=== PATIENT | female | born 1980 | race Caucasian/White ===

== ENCOUNTER 2016-11-01 08:59 | Day surgery (SDC) | payer BC ==
--- NOTE | 2016-10-30 14:31 | HP ---
HISTORY OF PRESENT ILLNESS: The patient is a 36-year-old, has had a cyst on her neck for years, before Thanksgiving it became infected. She is allergic to sulfa, had a anaphylactic response in the past. She had some allergy issues, she was transferred to [facility]. Been on Keflex recently. PAST MEDICAL HISTORY: Rheumatoid arthritis. MEDICATIONS: She has been on Keflex. PAST SURGICAL HISTORY: She had tonsillectomy, appendectomy, , and cholecystectomy in the past. Past surgical history also includes right lung decortication in the past. FAMILIY HISTORY: Cancer, hypertension. ALLERGIES: SULFA. She had anaphylactic response. SOCIAL HISTORY: No smoking or alcohol abuse. REVIEW OF SYSTEMS: Ten systems reviewed, per pre-admission assessment pertinent as noted above, pain on palpation. Other systems negative or noncontributory as noted above, appropriate pre-admission questionnaire. PHYSICAL EXAMINATION: GENERAL: No acute distress. HEENT: Sclerae nonicteric. NECK: No JVD. Left side of her neck there is a ruptured cyst. CHEST: Equal excursions. No laboring. CARDIOVASCULAR: Regular rate and rhythm. ABDOMEN: Soft. EXTREMITIES: No significant edema. NEUROLOGICAL: Alert, moving extremities grossly symmetrically, no gross motor deficits noted. IMPRESSION: History of ruptured cyst, neck, and need of incision. Told she was a candidate. She was explained the procedure in detail not limited to bleeding, infection, risk of complications or dehiscence, possibility there is infection, may need to leave in packing, we can gradually pull out over time and repack the wound. General risk of anesthesia, DVT, PE, pneumonia, perioperative risk of aches, pains, burning or numbness; the fact that she would have a scar in the area. She understands. We will excise. Likely it will not recur but she could get some cyst adjacent to or elsewhere on her body. She understands, agrees to plan or procedure. We will proceed with excisional biopsy, reference this site, right side of the neck, as an outpatient.
[~2016-11-01 08:59] MED LIST: DIPRIVAN 200 MG/20 ML IV ONE; Decadron 4 MG INJ IV ONE; Lactated Ringers 1,000 ML IV ONE; SUBLIMAZE 250 MCG/5 ML IJ ONE; Sensorcaine 0.25% 10 ML ONE; Versed 2 MG/2 ML Injection IV ONE; Zofran 4 MG/2 ML VIAL IV ONE
[2016-11-01] MEDS ORDERED: Pepcid 20 MG VIAL IV ONE ×2 (09:15→09:24)
[2016-11-01] MEDS ORDERED: BICITRA 30 ML CUP PO ONE (09:16)
[2016-11-01] MEDS ORDERED: Lactated Ringers 1,000 ML IV ONE (09:24)
[2016-11-01] MEDS ORDERED: BICITRA 30 ML CUP ONE (09:24)
[2016-11-01] MEDS ORDERED: Lactated Ringers 1,000 ML IV SCH (09:30)
[2016-11-01] MEDS ORDERED: KEFZOL 1 GM ONE (10:06)
[2016-11-01] MEDS ORDERED: SUBLIMAZE 100 MCG/2 ML ONE (11:09)
[2016-11-01 12:18] VITALS: PULSE 81; O2SAT 96
[2016-11-01 12:57] VITALS: BP 139/83
--- NOTE | 2016-11-01 12:57 | OP ---
SURGERY DATE/TIME: 11/01/2016 1015 PREOPERATIVE DIAGNOSIS: History of persistent ruptured neck cyst site. POSTOPERATIVE DIAGNOSIS: History of persistent ruptured neck cyst site. PROCEDURE: Excision and biopsy of ruptured neck cyst site right neck (approximately 2 cm with margins) with immediate closure. SURGEON: Dr. Murphy Goncalves. FOUNTAIN SUPERVISOR: Lucy Knight, Medical Student III. ANESTHESIA: General. ESTIMATED BLOOD LOSS: Minimal. INDICATIONS: As noted above. Risks and benefits explained in detail and not limited to and consent obtained. DESCRIPTION OF PROCEDURE AND FINDINGS: The site is confirmed with the patient in the preoperative holding area. The patient is taken to the operating room. After official time out and no disagreement with planned procedure, the area had been prepped and draped in usual sterile fashion. Marking out she had a prior scar over the top of it. It had a bulge with persist cyst more posteriorly. Dissecting carried spindle-shaped around both of these areas dissecting down to normal appearing subcutaneous tissue through underlying fascia staying directly underneath the inflamed phlegmon reaction there. It took some time but was slowly and carefully accomplished. It measured about 2 cm. Passed off for pathology. Hemostasis controlled with pin point cautery to needle point cautery. Otherwise good hemostasis noted. The wound is then closed in layers with deep superficial subcu closed with 3-0 Vicryl in interrupted fashion. Skin closed with 5-0 Vicryl running subcuticular fashion. Steri-Strips and sterile dressing applied. 0.25% Marcaine local injected along the wound. The patient tolerated the procedure well. There were no immediate complication. Findings discussed with the family out in the waiting area.
== END 2016-11-01 12:59 | disposition home or self-care (01) ==
LOC: SDC 08:59
PROVIDERS: ATTEND Surgery
PROC: 0JQ50ZZ Repair Left Neck Subcutaneous Tissue and Fascia, Open Approach (ICD-10-PCS; principal; 2016-11-01)
PROC: 0HB4XZX Excision of Neck Skin, External Approach, Diagnostic (ICD-10-PCS; 2016-11-01)
DX: L72.8 Other follicular cysts of the skin and subcutaneous tissue (principal); M06.9 Rheumatoid arthritis, unspecified
CPT/HCPCS: 00300; 36415; J0690; J1100; J2250; J2405; J2704; J3010

== ENCOUNTER 2018-05-06 11:03 | Emergency (ER) | payer BC ==
--- NOTE | 2018-05-06 11:41 | ERPHSYRPT ---
- History of Present Illness Time Seen by Provider: 05/06/18 11:32 Historian: patient Exam Limitations: no limitations Patient Subjective Stated Complaint: CHEST PAIN SINCE LAST NIGHT WITH NAUSEA TODAY. Triage Nursing Assessment: AMBULATED TO ROOM PER SELF. SKIN W/D, COLOR NORMAL, RESP EASY. GOOD RADIAL PULSE. HEART TONES CLEAR, BREATH SOUNDS CLEAR. NO EDEMA NOTED. Physician History: This is a 38-year-old white female with history of high blood pressure, PE, hypothyroidism, rheumatoid arthritis, Arrington syndrome, DVT of the right arm Patient arrives with complaint of pain in the left anterior chest radiating the left side of the neck and left arm symptoms since 11:00 last night described as a sharp pain Patient denies shortness of breath nausea vomiting. Past medical history includes high blood pressure, pulmonary embolism, hypothyroidism, rheumatoid arthritis, Sjogren syndrome, DVT right arm. Past surgical history includes cholecystectomy, , decortication right lung, tonsillectomy. Timing/Duration: yesterday (11 PM last night) Activities at Onset: none Quality: sharpness Location: other (left anterior chest radiating to left neck and left shoulder) Chest Pain Radiation: neck Severity of Pain-Max: moderate Severity of Pain-Current: mild Modifying Factors: Improves With: nothing Associated Symptoms: No nausea, No vomiting, No palpitations, No heartburn, No abdominal pain, No shortness of breath, No cough, No diaphoresis, No chills, No fever, No fatigue, No weakness, No swelling/lump in chest, No syncope, No rash, No headache, No dizziness, No edema, No back pain Prior Chest Pain/Cardiac Workup: pulmonary embolism Nitro Today/Relief: no nitro taken today Aspirin Treatment Today: 81 mg x 4, provided by ED Allergies/Adverse Reactions: Sulfa (Sulfonamide Antibiotics) Allergy (Severe, Verified 05/06/18 11:18) htn, severe pain all over, tachycardia Home Medications: Benazepril HCl 20 mg PO HS 05/06/18 [History] Ibuprofen [Ibu] 600 mg PO TID 05/06/18 [History] Hx Tetanus, Diphtheria Vaccination/Date Given: No Hx Influenza Vaccination/Date Given: No Hx Pneumococcal Vaccination/Date Given: No - Review of Systems Constitutional: No Fever, No Chills Eyes: No Symptoms Ears, Nose, & Throat: No Symptoms Respiratory: No Cough, No Dyspnea Cardiac: Chest Pain, No Edema, No Syncope Abdominal/Gastrointestinal: No Abdominal Pain, No Nausea, No Vomiting, No Diarrhea Genitourinary Symptoms: No Dysuria Musculoskeletal: No Back Pain, No Neck Pain Skin: No Rash Neurological: No Dizziness, No Focal Weakness, No Sensory Changes Psychological: No Symptoms Endocrine: No Symptoms All Other Systems: Reviewed and Negative - Past Medical History Pertinent Past Medical History: Yes Neurological History: No Pertinent History ENT History: No Pertinent History Cardiac History: Deep Vein Thrombosis Respiratory History: Pulmonary Embolism Endocrine Medical History: No Pertinent History Musculoskeletal History: Rheumatoid Arthritis GI Medical History: No Pertinent History History: No Pertinent History Psycho-Social History: No Pertinent History Female Reproductive Disorders: No Pertinent History Other Medical History: 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 pe 2011 - Past Surgical History Past Surgical History: Yes Neuro Surgical History: No Pertinent History Cardiac: No Pertinent History Respiratory: Other Gastrointestinal: Cholecystectomy Genitourinary: No Pertinent History Musculoskeletal: No Pertinent History Female Surgical History: Section Other Surgical History: decortication of the R lung - tonsilectomy - Social History Smoking Status: Never smoker Exposure to second hand smoke: No Drug Use: none Patient Lives Alone: No - Female History Hx Last Menstrual Period: 04/21/18 Hx Now: No - Nursing Vital Signs Nursing Vital Signs: Initial Vital Signs Temperature 98.4 F 05/06/18 11:04 Pulse Rate 106 H 05/06/18 11:04 Respiratory Rate 16 05/06/18 11:04 Blood Pressure 189/115 05/06/18 11:04 O2 Sat by Pulse Oximetry 100 05/06/18 11:04 Pain Scale Pain Intensity 0 - Physical Exam General Appearance: no apparent distress, alert Eye Exam: PERRL/EOMI, eyes nml inspection Ears, Nose, Throat Exam: normal ENT inspection, moist mucous membranes Neck Exam: normal inspection, non-tender, supple, full range of motion Respiratory Exam: normal breath sounds, lungs clear, No respiratory distress Cardiovascular Exam: regular rate/rhythm, normal heart sounds Gastrointestinal/Abdomen Exam: soft, No tenderness, No mass Back Exam: normal inspection, No CVA tenderness, No vertebral tenderness Extremity Exam: normal inspection, normal range of motion Neurologic Exam: alert, 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, cooperative, retail shift leader II-XII nml as tested, normal mood/affect, sensation nml, No motor deficits Skin Exam: normal color, warm, dry SpO2 Interpretation: normal (100%) SpO2: 100 Oxygen Delivery: Room Air - Course Nursing assessment & vital signs reviewed: Yes EKG Interpreted by Me: RATE (100 bpm), Sinus Rhythm, NORMAL AXIS, Other (EKG: Normal sinus rhythm, 100 beats per minute, axis SI/QIII pattern. No acute ST or T wave changes, compared to August 17, 2016) - Radiology Exams Chest X-ray Interpretation: Interpreted by me (no acute disease process ) - CT Exams Chest CT Interpretation: Tele-radiologist Report (CT chest: Impression: No evidence of pulmonary embolism. Mild bilateral axillary lymphadenopathy. Mild right lung base subsegmental atelectasis. Right pulmonary granuloma and mediastinal calcification suggestive of prior granulomatous disease. status post cholecystectomy.) Ordered Tests: Active Orders 24 hr Category Date Time Status Anode Builder STAT Care 05/06/18 11:29 Active EKG-ER Only STAT Care 05/06/18 11:29 Active IV Insertion STAT Care 05/06/18 11:29 Active Pulse Oximetry (ED) STAT Care 05/06/18 11:29 Active CHEST 1 VIEW (PORTABLE) Stat Exams 05/06/18 11:29 Taken CHEST WITH CONTRAST [CT] Stat Exams 05/06/18 12:25 Taken AMYLASE Routine Lab 05/06/18 11:15 Completed CBC W DIFF Stat Lab 05/06/18 11:15 Completed CMP Routine Lab 05/06/18 11:15 Completed D-DIMER QUANTITATION Stat Lab 05/06/18 11:15 Completed HCG QUALITATIVE,SERUM Stat Lab 05/06/18 11:15 Completed LIPASE Routine Lab 05/06/18 11:15 Completed PROTIME WITH INR Stat Lab 05/06/18 11:15 Completed PTT Stat Lab 05/06/18 11:15 Completed TROPONIN Q3H Lab 05/06/18 11:15 Completed TROPONIN Q3H Lab 05/06/18 14:14 Completed TROPONIN Q3H Lab 05/06/18 17:30 Ordered TROPONIN Q3H Lab 05/06/18 20:30 Ordered TROPONIN Q3H Lab 05/06/18 23:30 Ordered Medication Summary Discontinued Medications Generic Name Dose Route Start Last Admin Trade Name Freq PRN Reason Stop Dose Admin Aspirin 324 mg 05/06/18 12:24 05/06/18 12:30 Baby Aspirin 81 Mg Chew PO 05/06/18 12:25 324 mg STAT ONE Administration Aspirin Confirm 05/06/18 12:31 Baby Aspirin 81 Mg Chew Administered 05/06/18 12:32 Dose 324 mg .ROUTE .STK-MED ONE Benazepril HCl 20 mg 05/06/18 15:10 Lotensin 10 Mg PO 05/06/18 15:11 STAT STA Lab/Rad Data: Laboratory Result Diagrams 05/06/18 11:15 05/06/18 11:15 Laboratory Results 05/06/18 05/06/18 05/06/18 Range/Units 14:14 11:15 11:15 WBC (4.0-10.5) K/mm3 RBC (4.1-5.4) M/mm3 Hgb (12.0-16.0) gm/dl Hct (35-47) % MCV (78-100) fl MCH (26-32) pg MCHC (32-36) g/dl RDW (11.5-14.0) % Plt Count (150-450) K/mm3 MPV (6-9.5) fl Gran % (36.0-66.0) % Eos # (Auto) (0-0.5) Absolute Lymphs (auto) (1.0-4.6) Absolute Monos (auto) (0.0-1.3) Lymphocytes % (24.0-44.0) % Monocytes % (0.0-12.0) % Eosinophils % (0.00-5.0) % Basophils % (0.0-0.4) % Absolute Granulocytes (1.4-6.9) Basophils # (0-0.4) PT (9.95-12.35) SECONDS INR (0.8-3.0) APTT (25.3-37.0) SECONDS D-Dimer (215-500) ng/mL Sodium 141 (137-145) mmol/L Potassium 3.9 (3.5-5.1) mmol/L Chloride 106 (98-107) mmol/L Carbon Dioxide 25 (22-30) mmol/L Anion Gap 14.4 (5-15) MEQ/L BUN 10 (7-17) mg/dL Creatinine 0.84 (0.52-1.04) mg/dL Estimated GFR > 60.0 ML/MIN Glucose 105 (74-106) mg/dL Calcium 9.3 (8.4-10.2) mg/dL Total Bilirubin 0.30 (0.2-1.3) mg/dL AST 32 (14-36) U/L ALT 28 (0-35) U/L Alkaline Phosphatase 109 (38-126) U/L Troponin I < 0.012 < 0.012 (0.000-0.034) ng/mL Serum Total Protein 8.4 H (6.3-8.2) g/dL Albumin 4.2 (3.5-5.0) g/dL Amylase 95 (30-110) U/L Lipase 105 (23-300) U/L Serum , Qual NEGATIVE (Negative) 05/06/18 05/06/18 Range/Units 11:15 11:15 WBC 7.3 (4.0-10.5) K/mm3 RBC 4.74 (4.1-5.4) M/mm3 Hgb 13.2 (12.0-16.0) gm/dl Hct 39.8 (35-47) % MCV 84.0 (78-100) fl MCH 27.8 (26-32) pg MCHC 33.2 (32-36) g/dl RDW 13.4 (11.5-14.0) % Plt Count 290 (150-450) K/mm3 MPV 10.8 H (6-9.5) fl Gran % 72.5 H (36.0-66.0) % Eos # (Auto) 0.09 (0-0.5) Absolute Lymphs (auto) 0.95 L (1.0-4.6) Absolute Monos (auto) 0.95 (0.0-1.3) Lymphocytes % 13.1 L (24.0-44.0) % Monocytes % 13.1 H (0.0-12.0) % Eosinophils % 1.2 (0.00-5.0) % Basophils % 0.1 (0.0-0.4) % Absolute Granulocytes 5.26 (1.4-6.9) Basophils # 0.01 (0-0.4) PT 13.5 H (9.95-12.35) SECONDS INR 1.16 (0.8-3.0) APTT 30.5 (25.3-37.0) SECONDS D-Dimer 807 H* (215-500) ng/mL Sodium (137-145) mmol/L Potassium (3.5-5.1) mmol/L Chloride (98-107) mmol/L Carbon Dioxide (22-30) mmol/L Anion Gap (5-15) MEQ/L BUN (7-17) mg/dL Creatinine (0.52-1.04) mg/dL Estimated GFR ML/MIN Glucose (74-106) mg/dL Calcium (8.4-10.2) mg/dL Total Bilirubin (0.2-1.3) mg/dL AST (14-36) U/L ALT (0-35) U/L Alkaline Phosphatase (38-126) U/L Troponin I (0.000-0.034) ng/mL Serum Total Protein (6.3-8.2) g/dL Albumin (3.5-5.0) g/dL Amylase (30-110) U/L Lipase (23-300) U/L Serum , Qual (Negative) - Progress Progress: improved Air Movement: fair Progress Note: 05/06/18 15:00 This is a 78-year-old white female with history of high blood pressure pulmonary embolism, hypothyroidism, rheumatoid arthritis, Sjogren's syndrome, DVT in her right arm She arrives with complaint of pain in her anterior chest left sided radiating to her left neck and shoulder which she describes as sharp she denies any shortness of breath she did have nausea Patient has an EKG which is remarkable for sinus rhythm 100 bpm normal axis there is no acute ST or T wave changes noted patient had a essentially normal CBC and hCG was negative chemistry was essentially negative and troponin was less than 0.012 d-dimer was elevated at 807 Patient with a normal chest x-ray CT of the chest with contrast is remarkable for no evidence of pulmonary embolism mild bilateral axillary lymphadenopathy, mild right lung base side segmental atelectasis, right pulmonary granuloma and mediastinal calcification suggestive of prior granulomatous disease, status post cholecystectomy Patient did have an elevated blood pressure on arrival of 189/115 blood pressure did come down to 147/96 .. patient was given aspirin 324 mg orally. I will offer the patient pain medication she really doesn't want anything. Patient did state that she has run out of her blood pressure medication. And she has a prescription which has been called to her pharmacy but they will be closed. Will go ahead and obtain a dose for today and tomorrow of her benazepril 20 mg by mouth she generally takes this at bedtime. Will wait for repeat troponin. - Departure Time of Disposition: 15:14 Departure Disposition: Home Clinical Impression: Non-cardiac chest pain, increased ddimer, prior history pulmonary embolism Condition: Good Critical Care Time: No Referrals: ALEXIA GARCIA [Primary Care Provider] - Additional Instructions: Return home, rest. Medications as prescribed by your family physician. We have provided tonight and tomorrow night's dose of Benazapril. Be sure to fill your prescription one year pharmacy is open. Follow-up with your family doctor call Tuesday and arrange a follow-up appointment. Return for acute distress or for severe symptoms.
[2018-05-06 11:44] LABS: BASOPHIL % 0.1 % (0.0-0.4); Basophil (Absolute #) 0.01 (0-0.4); Eosinophil % 1.2 % (0.00-5.0); Eosinophil (Absolute #) 0.09 (0-0.5); Granulocyte Absolute (ANC) 5.26 (1.4-6.9); Granulocytes % 72.5 % (36.0-66.0); Hematocrit 39.8 % (35-47); Hemoglobin 13.2 gm/dl (12.0-16.0); Lymphocyte (Absolute #) 0.95 (1.0-4.6); Lymphocytes % 13.1 % (24.0-44.0); Mean Corpuscular Hemoglobin 27.8 pg (26-32); Mean Corpuscular Hgb Concent. 33.2 g/dl (32-36); Mean Platelet Volume 10.8 fl (6-9.5); Monocyte (Absolute #) 0.95 (0.0-1.3); Monocytes % 13.1 % (0.0-12.0); Platelet Count 290 K/mm3 (150-450); Red Blood Count 4.74 M/mm3 (4.1-5.4); Red Cell Distribution Width 13.4 % (11.5-14.0); White Blood Count 7.3 K/mm3 (4.0-10.5)
[2018-05-06 11:45] LABS: INR 1.16 (0.8-3.0)
[2018-05-06 11:47] LABS: PTT 30.5 SECONDS (25.3-37.0)
[2018-05-06 12:05] LABS: ALBUMIN 4.2 g/dL (3.5-5.0); ALKALINE PHOSPHATASE 109 U/L (38-126); AMYLASE 95 U/L (30-110); ANION GAP 14.4 MEQ/L (5-15); BLOOD UREA NITROGEN 10 mg/dL (7-17); CHLORIDE 106 mmol/L (98-107); Calcium 9.3 mg/dL (8.4-10.2); Carbon Dioxide 25 mmol/L (22-30); Creatinine 1 0.84 mg/dL (0.52-1.04); Glucose 105 mg/dL (74-106); LIPASE 105 U/L (23-300); Potassium 3.9 mmol/L (3.5-5.1); SGOT/AST 32 U/L (14-36); SGPT/ALT 28 U/L (0-35); SODIUM 141 mmol/L (137-145); Total Protein 8.4 g/dL (6.3-8.2)
[2018-05-06 12:06] LABS: TROPONIN < 0.012 ng/mL (0.000-0.034)
[2018-05-06] MEDS ORDERED: BABY ASPIRIN 81 MG CHEW PO ONE (12:24)
[2018-05-06] MEDS ORDERED: BABY ASPIRIN 81 MG CHEW ONE (12:31)
[2018-05-06] MEDS ORDERED: Lotensin 10 MG PO STA (15:10)
[2018-05-06 15:50] VITALS: BP 159/106; PULSE 96; O2SAT 99
--- NOTE | 2018-05-06 21:17 | XRAY ---
Indication: Chest pain. Comparison: August 17, 2016. Portable chest again demonstrates normal heart and lungs. Bony thorax intact with stable dextroscoliosis. No new/acute findings.
--- NOTE | 2018-05-06 21:17 | XRAY ---
Indication: Chest pain. Elevated d-dimer. Multiple contiguous axial images obtained through the chest using 100 cc Isovue 370 contrast and PE protocol. Comparison: July 19, 2011. There is satisfactory opacification of the pulmonary arteries to include the lobar and segmental branches. Again no filling defect or pulmonary embolus. Heart is not enlarged. Aorta is normal in course and caliber. Stable subcarinal and right hilar calcified nodes. Stable prominent bilateral axillary lymph nodes. No pathologic mediastinal/hilar lymphadenopathy. Examination of the lung parenchyma again demonstrates bibasilar atelectasis/scarring and small focus right base pleural thickening. Bony thorax intact again with dextrorotoscoliosis. Limited upper abdomen unremarkable with cholecystectomy clips. Impression: 1. Again negative pulmonary embolus. 2. No new or acute cardiopulmonary abnormalities. 3. Again prominent bilateral axillary lymph nodes and evidence for old granulomatous disease. Comment: Preliminary interpretation was made by C. No critical discrepancy. CTDI 20.19
== END 2018-05-06 15:51 | disposition home or self-care (01) ==
LOC: ED 11:03
DX: R07.89 Other chest pain (principal); R59.0 Localized enlarged lymph nodes; R79.1 Abnormal coagulation profile; Z79.899 Other long term (current) drug therapy; Z86.718 Personal history of other venous thrombosis and embolism
CPT/HCPCS: 36000; 36415; 71045; 71260; 80053; 82150; 83690; 84484; 84703; 85025; 85379; 85610; 85730; 93005; 93041; 99284; A9270-GY

== ENCOUNTER 2018-07-30 12:18 | Emergency (ER) | payer BC, SELFPAY ==
[2018-07-30 12:40] VITALS: O2SAT 99
[2018-07-30] MEDS ORDERED: Zofran 4 MG/2 ML VIAL IV ONE (12:44)
[2018-07-30] MEDS ORDERED: Zofran 4 MG/2 ML VIAL ONE (12:46)
[2018-07-30] MEDS ORDERED: Sodium Chloride 0.9% 1000 ML 1,000 ML IV STA (13:12)
--- NOTE | 2018-07-30 13:12 | ERPHSYRPT ---
- History of Present Illness Time Seen by Provider: 07/30/18 13:02 Source: patient Exam Limitations: no limitations Patient Subjective Stated Complaint: went to restroom and got real dizzy and thought that she was going to pass out, BP at that time 90/60, vomited, still dizzy and shaky Triage Nursing Assessment: Pt stated that she went to the restroom and then started feeling dizzy and like she was going to pass out, was finally able to pull her pants up and get to the door to get some help, blood pressure taken then was 90/60, reports that she vomited and has nausea, pulses normal, vitals normal, denies pain Physician History: The patient is a 38-year-old female with her complaining that while going to the restroom at [facility] this morning around 11:30 she became dizzy and felt like she was going to pass out. Witnesses told her she was very pale and white. She became clammy and sweaty. She was nauseated. She vomited on the way to the ER. She denies shortness of breath. She denied chest pain. She denied abdominal pain. Her last menstrual period was about 5 weeks ago. She normally has her menstrual periods every 4 weeks. Her has a vasectomy. Her past medical history is significant for hypertension, history of PE 5 or 6 years ago, tonsillectomy, and cholecystectomy. Witnessed: bystander Prior Episodes: single episode today, no prior history Timing/Duration: today, hour(s) (1), sudden, improved Precipitating Factors: diaphoresis, lightheadedness, nausea Context: sitting Loss of Consciousness: no loss of consciousness Charcter of event(s): felt faint, almost passed out Allergies/Adverse Reactions: Sulfa (Sulfonamide Antibiotics) Allergy (Severe, Verified 07/30/18 12:40) htn, severe pain all over, tachycardia Home Medications: Benazepril HCl 40 mg PO HS 05/06/18 [History] Ibuprofen [Ibu] 600 mg PO TID 05/06/18 [History] Metoprolol Succinate 50 mg [Toprol Xl 50 MG] 50 mg PO DAILY 07/30/18 [ History] Hx Tetanus, Diphtheria Vaccination/Date Given: No Hx Influenza Vaccination/Date Given: No Hx Pneumococcal Vaccination/Date Given: No - Past Medical History Pertinent Past Medical History: Yes Neurological History: No Pertinent History ENT History: No Pertinent History Cardiac History: Deep Vein Thrombosis Respiratory History: Pulmonary Embolism Endocrine Medical History: No Pertinent History Musculoskeletal History: Rheumatoid Arthritis GI Medical History: No Pertinent History History: No Pertinent History Psycho-Social History: No Pertinent History Female Reproductive Disorders: No Pertinent History Other Medical History: 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 pe 2011 - Past Surgical History Past Surgical History: Yes Neuro Surgical History: No Pertinent History Cardiac: No Pertinent History Respiratory: Other Gastrointestinal: Cholecystectomy Genitourinary: No Pertinent History Musculoskeletal: No Pertinent History Female Surgical History: Section Other Surgical History: decortication of the R lung - tonsilectomy - Social History Smoking Status: Never smoker Exposure to second hand smoke: No Drug Use: none Patient Lives Alone: No - Female History Hx Last Menstrual Period: 07/29/2018 Hx Now: No - Review of Systems Constitutional: No Fever, No Chills Eyes: No Symptoms Ears, Nose, & Throat: No Symptoms Respiratory: No Cough, No Dyspnea Cardiac: No Chest Pain, No Edema, No Syncope Abdominal/Gastrointestinal: No Abdominal Pain, No Nausea, No Vomiting, No Diarrhea Genitourinary Symptoms: No Dysuria Musculoskeletal: No Back Pain, No Neck Pain Skin: No Rash Neurological: Dizziness, No Focal Weakness, No Sensory Changes Psychological: No Symptoms Endocrine: No Symptoms Hematologic/Lymphatic: No Symptoms Immunological/Allergic: No Symptoms All Other Systems: Reviewed and Negative Physical Exam - Nursing Vital Signs Nursing Vital Signs: Initial Vital Signs Pulse Rate 79 07/30/18 12:25 Blood Pressure 134/82 07/30/18 12:25 O2 Sat by Pulse Oximetry 99 07/30/18 12:25 Pain Scale Pain Intensity 0 - Timber Coma Scale Best Eye Response (Timber): (4) open spontaneously Best Verbal Response (Timber): (5) oriented Best Motor Response (Kelvin): (6) obeys commands Kelvin Total: 15 - Physical Exam General Appearance: no apparent distress, alert Eye Exam: bilateral eye: PERRL, EOMI Ears, Nose, Throat Exam: normal ENT inspection, pharynx normal, moist mucous membranes Neck Exam: normal inspection, non-tender, supple, full range of motion Respiratory: normal breath sounds, lungs clear, No chest tenderness, No respiratory distress Cardiovascular: regular rate/rhythm, capillary refill <2 sec, No murmur, No pulse deficit Gastrointestinal: soft, No tenderness, No distention, No mass Pelvic Exam: not done Rectal Exam: not done Back Exam: normal inspection, normal range of motion, No CVA tenderness, No vertebral tenderness Extremity Exam: normal inspection, normal range of motion, pelvis stable, No tenderness Mental Status: alert, 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, 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 Exam: normal speech, PERRL, No facial droop Coordination/Gait: normal finger to nose Motor/Sensory: no motor deficit, no sensory deficit, no pronator drift Skin Exam: normal color, warm, dry, No rash SpO2 Interpretation: normal SpO2: 99 Oxygen Delivery: Room Air - Course EKG Interpreted by Me: RATE, Sinus Rhythm, NORMAL AXIS, NORMAL INTERVALS, NORMAL QRS, NORMAL ST-T, Other (no change compared to EKG from 05/06/18.) Ordered Tests: Active Orders 24 hr Category Date Time Status Clean Catch Urine Specimen STAT Care 07/30/18 13:12 Active EKG-ER Only STAT Care 07/30/18 12:44 Active IV Insertion STAT Care 07/30/18 12:44 Active Orthostatic Vital Signs STAT Care 07/30/18 13:13 Active CBC W DIFF Stat Lab 07/30/18 13:20 Completed CMP Stat Lab 07/30/18 13:20 Completed CULTURE,URINE Stat Lab 07/30/18 13:40 Received HCG QUALITATIVE,SERUM Stat Lab 07/30/18 13:20 Completed LIPASE Stat Lab 07/30/18 13:20 Completed Lactic Acid Stat Lab 07/30/18 13:12 Completed TROPONIN Q3H Lab 07/30/18 14:30 Ordered UA W/RFX UR CULTURE Stat Lab 07/30/18 13:40 Completed Medication Summary Discontinued Medications Generic Name Dose Route Start Last Admin Trade Name Freq PRN Reason Stop Dose Admin Sodium Chloride 1,000 mls @ 999 mls/hr 07/30/18 13:12 07/30/18 13:37 Sodium Chloride 0.9% 1000 Ml IV 07/30/18 14:12 999 mls/hr .Q1H1M STA Administration Sodium Chloride Confirm 07/30/18 13:18 Sodium Chloride 0.9% 1000 Ml Administered 07/30/18 13:19 Dose 1,000 mls @ ud .ROUTE .STK-MED ONE Ondansetron HCl 4 mg 07/30/18 12:44 07/30/18 12:47 Zofran 4 Mg/2 Ml Vial IV 07/30/18 12:45 4 mg STAT ONE Administration Ondansetron HCl Confirm 07/30/18 12:46 Zofran 4 Mg/2 Ml Vial Administered 07/30/18 12:47 Dose 4 mg .ROUTE .STK-MED ONE Lab/Rad Data: Laboratory Result Diagrams 07/30/18 13:20 07/30/18 13:20 Laboratory Results 07/30/18 07/30/18 07/30/18 Range/Units 13:40 13:20 13:20 WBC (4.0-10.5) K/mm3 RBC (4.1-5.4) M/mm3 Hgb (12.0-16.0) gm/dl Hct (35-47) % MCV (78-100) fl MCH (26-32) pg MCHC (32-36) g/dl RDW (11.5-14.0) % Plt Count (150-450) K/mm3 MPV (6-9.5) fl Gran % (36.0-66.0) % Eos # (Auto) (0-0.5) Absolute Lymphs (auto) (1.0-4.6) Absolute Monos (auto) (0.0-1.3) Lymphocytes % (24.0-44.0) % Monocytes % (0.0-12.0) % Eosinophils % (0.00-5.0) % Basophils % (0.0-0.4) % Absolute Granulocytes (1.4-6.9) Basophils # (0-0.4) Sodium 139 (137-145) mmol/L Potassium 4.2 (3.5-5.1) mmol/L Chloride 107 (98-107) mmol/L Carbon Dioxide 23 (22-30) mmol/L Anion Gap 13.8 (5-15) MEQ/L BUN 15 (7-17) mg/dL Creatinine 0.73 (0.52-1.04) mg/dL Estimated GFR > 60.0 ML/MIN Glucose 96 (74-106) mg/dL Lactic Acid (0.4-2.0) Calcium 8.9 (8.4-10.2) mg/dL Total Bilirubin 0.40 (0.2-1.3) mg/dL AST 43 H (14-36) U/L ALT 35 (0-35) U/L Alkaline Phosphatase 123 (38-126) U/L Serum Total Protein 8.1 (6.3-8.2) g/dL Albumin 4.0 (3.5-5.0) g/dL Lipase 112 (23-300) U/L Serum , Qual NEGATIVE (Negative) Urine Color YELLOW (YELLOW) Urine Appearance CLOUDY (CLEAR) Urine pH 5.0 (5-6) Ur Specific [place] 1.025 (1.005-1.025) Urine Protein 100 (Negative) Urine Ketones NEGATIVE (NEGATIVE) Urine Blood LARGE (0-5) Irvin/ul Urine Nitrite NEGATIVE (NEGATIVE) Urine Bilirubin NEGATIVE (NEGATIVE) Urine Urobilinogen NEGATIVE (0-1) mg/dL Ur Leukocyte Esterase SMALL (NEGATIVE) Urine WBC (Auto) 11-15 (0-5) /HPF Urine RBC (Auto) >101 (0-2) /HPF U Epithel Cells (Auto) RARE (FEW) /HPF Urine Bacteria (Auto) FEW (NEGATIVE) /HPF Urine Mucus (Auto) SLIGHT (NEGATIVE) /HPF Urine Culture Reflexed YES (NO) Urine Glucose NEGATIVE (NEGATIVE) mg/dL 07/30/18 07/30/18 Range/Units 13:20 13:12 WBC 9.1 (4.0-10.5) K/mm3 RBC 4.14 (4.1-5.4) M/mm3 Hgb 11.4 L (12.0-16.0) gm/dl Hct 34.6 L (35-47) % MCV 83.6 (78-100) fl MCH 27.5 (26-32) pg MCHC 32.9 (32-36) g/dl RDW 14.1 H (11.5-14.0) % Plt Count 240 (150-450) K/mm3 MPV 10.8 H (6-9.5) fl Gran % 82.8 H (36.0-66.0) % Eos # (Auto) 0.04 (0-0.5) Absolute Lymphs (auto) 0.73 L (1.0-4.6) Absolute Monos (auto) 0.77 (0.0-1.3) Lymphocytes % 8.1 L (24.0-44.0) % Monocytes % 8.5 (0.0-12.0) % Eosinophils % 0.4 (0.00-5.0) % Basophils % 0.2 (0.0-0.4) % Absolute Granulocytes 7.50 H (1.4-6.9) Basophils # 0.02 (0-0.4) Sodium (137-145) mmol/L Potassium (3.5-5.1) mmol/L Chloride (98-107) mmol/L Carbon Dioxide (22-30) mmol/L Anion Gap (5-15) MEQ/L BUN (7-17) mg/dL Creatinine (0.52-1.04) mg/dL Estimated GFR ML/MIN Glucose (74-106) mg/dL Lactic Acid 1.0 (0.4-2.0) Calcium (8.4-10.2) mg/dL Total Bilirubin (0.2-1.3) mg/dL AST (14-36) U/L ALT (0-35) U/L Alkaline Phosphatase (38-126) U/L Serum Total Protein (6.3-8.2) g/dL Albumin (3.5-5.0) g/dL Lipase (23-300) U/L Serum , Qual (Negative) Urine Color (YELLOW) Urine Appearance (CLEAR) Urine pH (5-6) Ur Specific [place] (1.005-1.025) Urine Protein (Negative) Urine Ketones (NEGATIVE) Urine Blood (0-5) Irvin/ul Urine Nitrite (NEGATIVE) Urine Bilirubin (NEGATIVE) Urine Urobilinogen (0-1) mg/dL Ur Leukocyte Esterase (NEGATIVE) Urine WBC (Auto) (0-5) /HPF Urine RBC (Auto) (0-2) /HPF U Epithel Cells (Auto) (FEW) /HPF Urine Bacteria (Auto) (NEGATIVE) /HPF Urine Mucus (Auto) (NEGATIVE) /HPF Urine Culture Reflexed (NO) Urine Glucose (NEGATIVE) mg/dL - Progress Progress: improved Counseled pt/family regarding: lab results, diagnosis, need for follow-up - Departure Time of Disposition: 14:18 Departure Disposition: Home Clinical Impression: Vaso vagal episode Condition: Stable Critical Care Time: No Referrals: ALEXIA HOFFMAN [Primary Care Provider] - Additional Instructions: You had a near syncopal episode today. You were given Zofran 4 mg and fluids by IV in the ER. He may continue to take Zofran 4 mg ODT every 6 hours as needed for nausea or vomiting. Stay well hydrated. Follow-up with Dr. Hoffman in 1-2 days.
[2018-07-30] MEDS ORDERED: Sodium Chloride 0.9% 1000 ML 1,000 ML ONE (13:18)
[2018-07-30 13:33] LABS: BASOPHIL % 0.2 % (0.0-0.4); Basophil (Absolute #) 0.02 (0-0.4); Eosinophil % 0.4 % (0.00-5.0); Eosinophil (Absolute #) 0.04 (0-0.5); Granulocytes % 82.8 % (36.0-66.0); Hematocrit 34.6 % (35-47); Hemoglobin 11.4 gm/dl (12.0-16.0); Lymphocyte (Absolute #) 0.73 (1.0-4.6); Lymphocytes % 8.1 % (24.0-44.0); Mean Cell Volume 83.6 fl (78-100); Mean Corpuscular Hemoglobin 27.5 pg (26-32); Mean Corpuscular Hgb Concent. 32.9 g/dl (32-36); Mean Platelet Volume 10.8 fl (6-9.5); Monocyte (Absolute #) 0.77 (0.0-1.3); Monocytes % 8.5 % (0.0-12.0); Platelet Count 240 K/mm3 (150-450); Red Blood Count 4.14 M/mm3 (4.1-5.4); Red Cell Distribution Width 14.1 % (11.5-14.0); White Blood Count 9.1 K/mm3 (4.0-10.5)
[2018-07-30 13:53] LABS: ALKALINE PHOSPHATASE 123 U/L (38-126); ANION GAP 13.8 MEQ/L (5-15); BLOOD UREA NITROGEN 15 mg/dL (7-17); CHLORIDE 107 mmol/L (98-107); Calcium 8.9 mg/dL (8.4-10.2); Carbon Dioxide 23 mmol/L (22-30); Creatinine 1 0.73 mg/dL (0.52-1.04); Glucose 96 mg/dL (74-106); LIPASE 112 U/L (23-300); Potassium 4.2 mmol/L (3.5-5.1); SGOT/AST 43 U/L (14-36); SGPT/ALT 35 U/L (0-35); SODIUM 139 mmol/L (137-145); Total Protein 8.1 g/dL (6.3-8.2)
[2018-07-30 13:55] LABS: Appearance CLOUDY (CLEAR); Bilirubin NEGATIVE (NEGATIVE); Blood LARGE Ery/ul (0-5); Glucose NEGATIVE (NEGATIVE); Ketones NEGATIVE (NEGATIVE); Leukocyte Esterase SMALL (NEGATIVE); Nitrite NEGATIVE (NEGATIVE); Protein,Urine Dip 100 (Negative); Specific Gravity 1.025 (1.005-1.025); Urobilinogen NEGATIVE mg/dL (0-1)
[2018-07-30 13:56] VITALS: PULSE 76
[2018-07-30] MEDS ORDERED: ZOFRAN ODT 4 MG PO PRN (14:19)
[2018-07-30] MEDS ORDERED: ZOFRAN ODT 4 MG ONE (14:25)
[2018-07-30 14:39] VITALS: BP 118/68
== END 2018-07-30 14:39 | disposition home or self-care (01) ==
LOC: ED 12:18
DX: R55 Syncope and collapse (principal); R42 Dizziness and giddiness; Z86.718 Personal history of other venous thrombosis and embolism; Z86.711 Personal history of pulmonary embolism; M06.9 Rheumatoid arthritis, unspecified
CPT/HCPCS: 36000; 36415; 80053; 81001; 81025; 83605; 83690; 84484; 85025; 87086; 93005; 96374; 99284; J2405; Q0162